=== PATIENT | male | born 1965 | race Caucasian/White ===

== ENCOUNTER 2022-02-26 19:19 | Emergency (ER) | payer OTHER ==
[2022-02-26] MEDS ORDERED: KEFLEX250 MG PO (20:38)
== END 2022-02-26 20:53 | disposition home or self-care (01) ==
LOC: FER 19:19
DX: S62.661A Nondisplaced fracture of distal phalanx of left index finger, initial encounter for closed fracture (principal); S62.663A Nondisplaced fracture of distal phalanx of left middle finger, initial encounter for closed fracture; S62.665A Nondisplaced fracture of distal phalanx of left ring finger, initial encounter for closed fracture; S61.221A Laceration with foreign body of left index finger without damage to nail, initial encounter; S61.223A Laceration with foreign body of left middle finger without damage to nail, initial encounter; I10 Essential (primary) hypertension; J44.9 Chronic obstructive pulmonary disease, unspecified; F17.200 Nicotine dependence, unspecified, uncomplicated; Z23 Encounter for immunization; Z88.5 Allergy status to narcotic agent; Z88.6 Allergy status to analgesic agent; Z88.4 Allergy status to anesthetic agent; W27.0XXA Contact with workbench tool, initial encounter; Y92.009 Unspecified place in unspecified non-institutional (private) residence as the place of occurrence of the external cause; Z28.310 Unvaccinated for COVID-19
CPT/HCPCS: 73130; 90471; 90715